=== PATIENT | female | born 1995 | race Caucasian/White ===

== ENCOUNTER 2021-11-09 16:18 | Emergency (ER) | payer BC ==
[~2021-11-09] VITALS: Ht 162.6 cm; Wt 52.3 kg
[2021-11-09 17:16] LABS: BASO % 0.3 % (0.0-2.0); EOS # 0.1 K/mm3 (0.0-0.7); EOS % 0.9 % (0.0-4.0); GRAN # 6.7 K/mm3 (1.4-6.5); GRAN % 75.8 % (42.2-75.2); LYMPH # 1.6 K/mm3 (1.2-3.4); LYMPH % 17.6 % (20.0-51.0); MEAN CELL VOLUME 83 fl (80.0-100.0); MEAN CORPUSCULAR HEMOGLOBIN 28 pg (27-31); MEAN CORPUSCULAR HGB CONC 33 g/dl (33.0-37.0); MEAN PLATELET VOLUME 8.7 fl (7.4-10.4); MONO # 0.5 K/mm3 (0.1-0.6); MONO % 5.2 % (1.7-9.3); PLATELET COUNT 305 K/mm3 (130-400); REDCELL DISTRIBUTION WIDTH-CV 13.6 % (11.5-14.5)
[2021-11-09 17:31] LABS: ALANINE AMINOTRANSFERASE 12 U/L (0-55); ALBUMIN 4.8 gm/dL (3.5-5.0); ALKALINE PHOSPHATASE 113 U/L (40-150); ANION GAP 12 mmol/L (7-16); AST,SGOT 19 U/L (5-34); BILIRUBIN,TOTAL 0.6 mg/dL (0.2-1.2); BLOOD UREA NITROGEN 7 mg/dL (7-19); CARBON DIOXIDE 20 mmol/L (22-29); CHLORIDE 107 mmol/L (98-107); CREATININE, serum 0.87 mg/dL (0.57-1.11); GLUCOSE 111 mg/dL (70-99); POTASSIUM 3.1 mmol/L (3.5-4.5); SODIUM 139 mmol/L (136-145); TOTAL PROTEIN 8.9 gm/dL (6.2-8.1)
[2021-11-09 17:38] LABS: TROPONIN-I < 0.010 ng/mL (0.00-0.033)
[2021-11-09] MEDS ORDERED: ATARAX 25MG25 MG/TAB PO (19:23)
[2021-11-09 19:37] VITALS: BP 126/89; PULSE 104; TEMP 98
== END 2021-11-09 19:51 | disposition home or self-care (01) ==
LOC: COL.ER 16:18
PROVIDERS: Emergency Medicine
DX: R06.00 Dyspnea, unspecified (principal); R00.0 Tachycardia, unspecified; E87.6 Hypokalemia; Z28.310 Unvaccinated for COVID-19
CPT/HCPCS: J7030